=== PATIENT | female | born 1945 | race Caucasian/White ===

== ENCOUNTER 2019-11-03 11:35 | Outpatient (CLI) | payer MEDICARE, SELFPAY ==
--- NOTE | 2019-11-03 12:44 | ECG_ITS ---
Measurements Intervals [place] Rate: 64 P: 45 WV: 129 QRS: -72 QRSD: 86 T: 41 QT: 391 QTc: 404 Interpretive Statements SINUS RHYTHM LEFT AXIS DEVIATION INCOMPLETE RIGHT BUNDLE BRANCH BLOCK BASELINE ARTIFACT- I, II, III, AVR, AVL, AVF, V1-V6 BORDERLINE ECG Electronically Signed On 11-03-2019 13:00:44 CDT by Raoul Wilkins D.O.
[2019-11-03 13:02] LABS: Basophils Absolute Auto 0.1 K/mm3 (0.0-0.1); Basophils Percent Auto 0.6 % (0.2-1.2); Eosinophils Absolute Auto 0.1 K/mm3 (0-0.3); Eosinophils Percent Auto 0.9 % (0-4.4); Hematocrit 40.9 % (37.0-47.0); Hemoglobin 13.6 g/dL (12.0-15.0); Immature Granulocyte Absolute 0.02 K/mm3 (0.00-0.031); Immature Granulocyte Percent A 0.2 % (0-0.5); Lymphocytes Absolute Auto 1.75 K/mm3 (0.9-3.2); Lymphocytes Percent Auto 20.5 % (18.3-44.2); Mean Corpuscular HGB Conc 33.3 g/dl (32-36); Mean Corpuscular Hemoglobin 31.4 pg (26-34); Mean Corpuscular Volume 94.5 fl (80-100); Monocytes Absolute Auto 0.6 K/mm3 (0.1-0.6); Monocytes Percent Auto 6.9 % (2.6-8.5); Neutrophils Absolute Auto 6.1 K/mm3 (1.3-6.7); Neutrophils Percent Auto 70.9 % (45.5-73.1); Platelet Count Result 257 k/mm3 (150-375); Red Blood Count 4.33 M/mm3 (4.2-5.4); Red Cell Distribution Width 12.9 % (11.5-14.5); White Blood Count 8.5 K/mm3 (4.5-10.0)
[2019-11-03 13:15] LABS: Prothrombin Time 13.1 Seconds (11.1-14.7)
[2019-11-03 13:16] LABS: Partial Thromboplastin Time 25.9 SECONDS (22.3-36.8)
[2019-11-03 13:17] LABS: Alanine Aminotransferase 25 U/L (4-35); Albumin Level 4.2 g/dL (3.5-5.1); Alkaline Phosphatase 47 U/L (38-126); Anion Gap 3 mmol/L (8-16); Aspartate Amino Transferase 33 U/L (14-36); Bilirubin,Total 0.6 mg/dL (0.2-1.3); Blood Urea Nitrogen 22 mg/dL (7-17); Calcium 9.9 mg/dL (8.4-10.2); Carbon Dioxide 28 mmol/L (22-30); Chloride 106 mmol/L (98-107); Estimated Glomerular Filt Rate > 60; Glucose 93 mg/dL (65-105); Potassium 4.9 mmol/L (3.4-5.0); Sodium 137 mmol/L (137-145)
== END 2019-11-03 11:36 | disposition home or self-care (01) ==
PROVIDERS: Visit Provider Urology
DX: Z01.818 Encounter for other preprocedural examination (principal); N81.4 Uterovaginal prolapse, unspecified; E78.00 Pure hypercholesterolemia, unspecified
CPT/HCPCS: 36415; 80053; 85025; 85610; 85730; 86850; 86900; 86901; 87077; 87086; 87088; 87186; 93005

== ENCOUNTER 2019-11-10 00:19 | Outpatient (CLI) | payer MEDICARE, SELFPAY ==
[2019-11-10 18:02] LABS: SARS-CoV-2 RNA PCR Negative
== END 2019-11-10 00:20 | disposition home or self-care (01) ==
LOC: ANHCOVIDDT 00:19
PROVIDERS: Visit Provider Urology
DX: Z01.812 Encounter for preprocedural laboratory examination (principal); Z20.828 Contact with and (suspected) exposure to other viral communicable diseases
CPT/HCPCS: 87635; C9803; U0003

== ENCOUNTER 2019-11-13 01:27 | Day surgery (SDC) | payer MEDICARE, SELFPAY ==
[2019-11-03 12:11] VITALS: BP 128/64; PULSE 72; RESP 18; TEMP 37.2; O2SAT 99
[2019-11-03 12:41] VITALS: BMI 24.3
--- NOTE | 2019-11-08 08:00 | P.HP_ITS ---
H&P: HPI History of Present Illness Date/Time: 11/08/19 08:00 Chief complaint: Uterine Prolapse Narrative: Nisha Birmingham is a 74 year old female Who is admitted for repair of complete prolapse. She will undergo robotic supracervical hysterectomy bilateral salpingo-oophorectomy and robotic sacral colpopexy. Risks and benefits were reviewed including but not exclusive of , aspiration pneumonia, bleeding, transfusion. Perforation injury to bowel, bladder, ureters, or other internal organs with need for laparotomy reviewed. She had all questions answered. She asked to proceed Review of Systems 2 Review of Systems: All systems reviewed & are unremarkable except as noted in HPI and below PMFSH Social History Social History Smoking status: Never smoker Alcohol intake: current Drinks per week: 2 Substance use: never Spiritual care concerns: No Meds Home Medications and Allergies Home Medications Medication Instructions Recorded Confirmed Type alprazolam 0.25 mg PO BID PRN 11/03/19 11/03/19 History calcium carbonate [Calcium 600] 600 mg PO DAILY 11/03/19 11/03/19 History hqnf-yhfrc-fx9-yxq-elc-tooy-st 1 cap PO DAILY 11/03/19 11/03/19 History [Glucosamine Chondroitin PLUS] levothyroxine 25 mcg PO DAILY 11/03/19 11/03/19 History lisinopril 10 mg PO DAILY 11/03/19 11/03/19 History loratadine 10 mg PO DAILY 11/03/19 11/03/19 History tcntpqzd-rlvg-AE-calcium-mins 1 tablet PO DAILY 11/03/19 11/03/19 History [Women's One Daily] rosuvastatin 10 mg PO EVERY OTHER DAY 11/03/19 11/03/19 History Allergies Allergy/AdvReac Type Severity Reaction Status Date / Time ciprofloxacin [From Cipro] AdvReac Rash Verified 11/03/19 11:58 nitrofurantoin AdvReac Rash Verified 11/03/19 12:00 [From Macrobid] Exam Const: General: no acute distress Eyes: General: appearance normal, both eyes and all related structures Neck: Neck: supple and no JVD Thyroid: thyroid normal Resp: Effort & Inspection: normal respiratory effort Auscultation: clear to auscultation bilaterally Cardio: Rate: regular rate Rhythm: regular rhythm GI: Inspection: non-distended GI Palp: Yes Soft to palpation, No Tenderness to palpation present (GI) and No Guarding due to palpation present (GI) Auscultation: normal bowel sounds : General: Yes other ( 3rd degree prolapse is seen. Uterus and adnexa not enlarged) Skin: General skin exam: no rashes or lesions noted Extrem: General: normal to inspection and no edema Psych: Mental Status: mental status grossly normal Affect: normal affect Assessment and Plan Additional Plan impression: Pelvic prolapse Plan: Robotic supracervical hysterectomy and bilateral salpingo-oophorectomy
--- NOTE | 2019-11-12 17:23 | PM.IMHP ---
H&P: HPI History of Present Illness Date/Time: 11/12/19 17:23 Chief complaint: Uterine Prolapse Narrative: Nisha Birmingham is a 74 year old female with uterine prolapse, no SANDRA Review of Systems Review of Systems: All systems reviewed & are unremarkable except as noted in HPI and below PMFSH Social History Social History Smoking status: Never smoker Alcohol intake: current Drinks per week: 2 Substance use: never Spiritual care concerns: No Meds Home Medications and Allergies Home Medications Medication Instructions Recorded Confirmed Type alprazolam 0.25 mg PO BID PRN 11/03/19 11/03/19 History calcium carbonate [Calcium 600] 600 mg PO DAILY 11/03/19 11/03/19 History guin-wlwlk-vc3-ing-ofe-cdrk-st 1 cap PO DAILY 11/03/19 11/03/19 History [Glucosamine Chondroitin PLUS] levothyroxine 25 mcg PO DAILY 11/03/19 11/03/19 History lisinopril 10 mg PO DAILY 11/03/19 11/03/19 History loratadine 10 mg PO DAILY 11/03/19 11/03/19 History wusjxtue-kdcg-VK-calcium-mins 1 tablet PO DAILY 11/03/19 11/03/19 History [Women's One Daily] rosuvastatin 10 mg PO EVERY OTHER DAY 11/03/19 11/03/19 History Allergies Allergy/AdvReac Type Severity Reaction Status Date / Time ciprofloxacin [From Cipro] AdvReac Rash Verified 11/03/19 11:58 nitrofurantoin AdvReac Rash Verified 11/03/19 12:00 [From Macrobid] Exam Const: General: no acute distress HENMT: Mouth: Yes moist mucous membranes Eyes: EOM: EOMs intact bilaterally Neck: Neck: supple Resp: Effort & Inspection: normal respiratory effort GI: GI Palp: Yes Soft to palpation : Other: anterior +3, apex at 0 Skin: General skin exam: no rashes or lesions noted Neuro: Motor exam (neuro): Normal motor muscle tone present throughout Extrem: General: normal to inspection Psych: Affect: normal affect Assessment and Plan Assessment and plan (1) Uterine prolapse: Code(s): N81.4 - Uterovaginal prolapse, unspecified Status: Acute Assessment and Plan: robotic Sacral Colpopexy
[2019-11-13] VITALS (14 sets, daily range): BP systolic 102–142; BP diastolic 60–77; PULSE 52–87; RESP 12–20; TEMP 36.1–37.1; O2SAT 91–100; BMI 24.2
--- NOTE | 2019-11-13 06:03 | WPDHPUPDATE1 ---
History and Physical Update Update Date/Time: 11/13/19 06:03 History and Physical has been reviewed, including an updated exam of the patient. There are NO changes in the patient's condition. Risks, benefits, and alternatives have been discussed and questions answered. Patient agrees to proceed with procedure.
--- NOTE | 2019-11-13 07:19 | WPDHPUPDATE1 ---
History and Physical Update Update Date/Time: 11/13/19 07:19 History and Physical has been reviewed, including an updated exam of the patient. There are NO changes in the patient's condition. Risks, benefits, and alternatives have been discussed and questions answered. Patient agrees to proceed with procedure.
--- NOTE | 2019-11-13 09:48 | P.PNAN_ITS ---
Anes - Initial Pre Proc Eval Procedure: Operation Date: 11/13/19 11:30 Proposed Procedures p Robotic Assisted Sacrocolpopexy - Grzegorz Spicer MD s Robotic Assisted Supracervical Hysterectomy With Bilateral Salpingo- Oophorectomy - Titus Cardozo MD Date/Time: 11/13/19 09:48 Surgeon: Grzegorz Spicer MD Pre Op Diagnosis: Uterine Prolapse Patient Data Age: 74 Gender: F Height: 5 ft 3 in Weight: 62.3 kg Last Vital Signs Temp 37.2 C 11/03/19 12:11 Pulse 72 11/03/19 12:11 Resp 18 11/03/19 12:11 BP 128/64 11/03/19 12:11 Pulse Ox 99 11/03/19 12:11 Allergies Allergy/AdvReac Type Severity Reaction Status Date / Time ciprofloxacin [From Cipro] AdvReac Rash Verified 11/03/19 11:58 nitrofurantoin AdvReac Rash Verified 11/03/19 12:00 [From Macrobid] Home Medications Medication Instructions Recorded Confirmed Type alprazolam 0.25 mg PO BID PRN 11/03/19 11/03/19 History calcium carbonate [Calcium 600] 600 mg PO DAILY 11/03/19 11/03/19 History rlum-flxoj-fr2-pkz-zxs-adxx-st 1 cap PO DAILY 11/03/19 11/03/19 History [Glucosamine Chondroitin PLUS] levothyroxine 25 mcg PO DAILY 11/03/19 11/03/19 History lisinopril 10 mg PO DAILY 11/03/19 11/03/19 History loratadine 10 mg PO DAILY 11/03/19 11/03/19 History qvcnyywn-umlh-TD-calcium-mins 1 tablet PO DAILY 11/03/19 11/03/19 History [Women's One Daily] rosuvastatin 10 mg PO EVERY OTHER DAY 11/03/19 11/03/19 History Patient hx anesthesia problems: none Family hx anesthesia problems: none PMFSH Past Medical History Medical History (Updated 11/13/19 @ 09:48 by Titus Jimenez MD) Anxiety HTN (hypertension) Hyperlipidemia Social History Social History Smoking status: Never smoker Alcohol intake: current Drinks per week: 2 Substance use: never Living arrangements: with family Spiritual care concerns: No Anes - Eval Final PreProcedure Day of Procedure 11/13/19 09:48 Patient weight: normal Heart: regular rate and rhythm Lungs: clear to auscultation Airway: Mallampati scale class II Neurological: alert and oriented Last oral intake: >/= 8 hours ASA classification: II Emergent: no Anesthetic plan: proceed Anesthesia type and monitoring: general ETT and standard monitoring Informed Consent: The patient's anesthetic plan and its attendant risks and benefits were discussed with the patient/family/POA. Questions were solicited and answers provided to the satisfaction of the patient/family/POA.
[2019-11-13] MEDS: KETOROLAC 15 MG/ML VIAL (*BKC) IV PUSH ×2 (09:58→22:45)
[2019-11-13] MEDS: LACTATED RINGERS 1,000 ML 30 ML IV CONT ×2 (09:58→13:15)
[2019-11-13] MEDS: ACETAMINOPHEN 500 MG TABLET 1000 MG PO (09:59)
[2019-11-13] MEDS: ceFAZolin 2 GM/D5W 50 ML 2 GM/50 ML BAG IVPB (10:35)
[2019-11-13] MEDS: metroNIDAZOLE 500 MG/ISO 100ML 500 MG/100 ML BAG 100 MG IVPB (10:35)
[2019-11-13] MEDS: BUPIVACAINE/EPINEPHRINE 0.25% 50 ML VIAL INFILTRATE (11:19)
--- NOTE | 2019-11-13 11:31 | PM.PROC ---
Procedure Note - Detailed Date of procedure: 11/13/19 Pre-op diagnosis: Uterine Prolapse Surgeon: Titus Cardozo MD Postop diagnosis: Uterine prolapse there there were no complications Complications: None Findings: Normal-appearing uterus and ovaries left fallopian tube was normal. Right fallopian tube was partially absent Description of procedure: The patient was prepped and draped in the normal sterile fashion placed in the dorsal lithotomy position. Under excellent general endotracheal anesthesia weighted speculum was placed in posterior fornix of vagina. Anterior lip of the cervix was grasped with a single-tooth tenaculum in the Buchanan's cannula inserted to the cervix to be used later for uterine manipulation. The remainder instruments removed and a 16 [place] catheter placed in the bladder. Dr. hooper proceeded to dock the robot and after placement of the trocars. Please see his operative report for full details The left round ligament was grasped, burned, cut anteriorly the bladder flap was formed by caudally retracting the bladder away from the cervix and uterus to the opposite round ligament which was clamped burned and cut. The left infundibulopelvic structure was skeletonized. This was serially clamped, burned, cut and brought to the level of the previously cut round ligament. In like fashion the right infundibulopelvic structures were skeletonized. They were clamped, burned, cut to remove the right ovary and portion of tube. The left cardinal and broad ligaments were serially skeletonized. These were clamped, burned, cut and brought down the lateral edge of the cervix. In like fashion the right cardinal and broad ligaments were serially skeletonized. These were clamped, burned, cut and brought down to the level of the uterine vessels uterine vessels on the left were then serially clamped, burned, cut in individual fashion. The right uterine vessels were then serially skeletonized, clamped, burned, cut. Blanching was seen this supracervical incision was made in the uterus ovary and tube were replaced in the Endo-Catch. Blood loss was 25cc to this point Dr. Olivia proceeded with his portion from
--- NOTE | 2019-11-13 13:07 | P.OP_ITS ---
Procedure Note - Detailed Date of procedure: 11/13/19 Pre-op diagnosis: Uterine Prolapse Uterine prolapse Post-op diagnosis: same Procedure performed: Robotic assisted laparoscopic sacral colpopexy Cystoscopy Description of procedure: She understood the risks of bleeding, infection, damage to surrounding organs, bowel injury, bowel obstruction, recurrence of prolapse, persistent or recurrent stress incontinence, mesh related complications including exposure and extrusion, diskitis, postoperative voiding dysfunction including incontinence and retention, hip and leg pain, dyspareunia, and she agrees to proceed. She was correctly identified and informed consent was obtained. She was brought to the operating room. She was given general anesthesia. She was placed in the dorsal lithotomy position. All pressure points were padded. She was given appropriate perioperative antibiotics. Time-out performed. I anesthetized the skin 3 fingerbreadths cephalad to the umbilicus. I incised the skin. I dissected down to locate the fascia. I grasped the fascia with Lulú clamps. I entered the fascia sharply. I placed Vicryl sutures for later fascial closure. I placed a midline trocar. Under direct vision 2 additional trocars were placed on the right and left upper quadrant. She was placed in steep Trendelenburg and the robot was docked. Her manager [employer] performed the portion of the procedure and left the specimen and a sac which was extracted. I then sat at the console. With the Sizer in the vagina I created a plane on the anterior and posterior vaginal wall. This was done for several cm taking great care not to injure the vagina, bladder, or rectum. I introduced the mesh into the abdomen. I sewed the anterior leaflet of mesh on the anterior vaginal wall and posterior leaf of the mesh on the posterior vaginal wall with several [place] sutures taking great care not to go through and through. I then reflected the colon laterally. I opened up the posterior peritoneum over the sacral promontory. I carried this into the cul-de-sac. I kept the ureters lateral. I freed up the edges. I located the anterior longitudinal ligament of the sacrum. I tensioned the mesh appropriately. I did a vaginal exam to ensure prolapse reduction without undue tension. I then sewed the proximal leaflet of mesh onto the ligament with 3 sutures of 2 0 [place]. Next the mass was meticulously retroperitonealized with a running 2 0 Monocryl suture. I allowed the colon to go back into its normal anatomic location. There is no signs of any impingement or stricturing. The abdomen was exited. Fascia was closed. Skin was closed with Monocryl and glue. I then performed cystoscopy. The bladder is examined. There was no tumors, stones, foreign bodies, surgical artifact. Both ureters were seen to excrete clear yellow urine. There is no surgical artifact in the urethra. Catheter was then replaced. She was awakened and transferred to the PACU in stable condition. Anesthesia: GLMA Surgeon: Grzegorz Spicer MD Drains: Yes (Alcantar catheter) Packing: Yes Complications: No immediate complications Condition: stable Disposition: PACU
[2019-11-13] MEDS: fentaNYL CITRATE INJ (*CRX) 100 MCG/2 ML VIAL 25 MCG IV PUSH ×4 (13:29→14:19)
[2019-11-13] MEDS: ONDANSETRON INJ 4 MG/2 ML VIAL IV PUSH (14:15)
[2019-11-13] MEDS: KETOROLAC 30 MG/ML VIAL (*BKC) (15:11)
[2019-11-13] MEDS: KCL 20 MEQ/D5/0.45% SOD CHL 1,000 ML 100 ML IV CONT (15:11)
--- NOTE | 2019-11-13 15:43 | PC.NURSE ---
This patient, Nisha Birmingham, was received from PACU on 11/13/19 at 1438. Patient/family oriented to unit policies and routines
[2019-11-13] MEDS: diphenhydrAMINE HCl INJ 50 MG/ML VIAL 25 MG IV PUSH (16:16)
[2019-11-13] MEDS: ACETAMINOPHEN 325 MG TABLET 650 MG PO (19:39)
[2019-11-14 00:09] VITALS: BP 107/57; PULSE 71; RESP 16; TEMP 37.1; O2SAT 95
[2019-11-14] MEDS: KCL 20 MEQ/D5/0.45% SOD CHL 1,000 ML 100 ML IV CONT (01:56)
[2019-11-14] MEDS: HYDROcodone/acetaminophen (*CRX) 5-325 MG TABLET 1 TAB PO ×2 (04:33→09:03)
[2019-11-14 04:46] VITALS: BP 110/61; PULSE 69; RESP 16; TEMP 36.7; O2SAT 95
--- NOTE | 2019-11-14 06:28 | PM.OBPNVD ---
OB - PN: Subj Subjective Date/time seen: 11/14/19 06:28 Patient comments: no complaints and pain well controlled OB - PN A/P Plan day: 1 Plan: routine care, discharge home and follow up 6 weeks (2 weeks) Time Spent With Patient Time: Total time spent is greater than 50% in coordination of care (as documented) at patient's floor/unit and/or counseling patient: Time with patient: less than 15 minutes Review of Systems Review of Systems: All systems reviewed & are unremarkable except as noted in HPI and below Exam Const: General: no acute distress Eyes: General: appearance normal, both eyes and all related structures Neck: Neck: supple and no JVD Thyroid: thyroid normal Resp: Effort & Inspection: normal respiratory effort Auscultation: clear to auscultation bilaterally Cardio: Rate: regular rate Rhythm: regular rhythm GI: Inspection: non-distended GI Palp: Yes Soft to palpation, No Tenderness to palpation present (GI) and No Guarding due to palpation present (GI) Auscultation: normal bowel sounds Skin: General skin exam: no rashes or lesions noted Extrem: General: normal to inspection and no edema Psych: Mental Status: mental status grossly normal Affect: normal affect
--- NOTE | 2019-11-14 06:29 | PM.DS ---
DS: Admitting Diagnosis Admitting Diagnosis Admitting Diagnosis: Uterine Prolapse DS: Summary Time Spent with Patient Time attestation: Total time spent providing and/or coordinating discharge services: The patient experienced an unremarkable post operative course. She remained afebrile. She was up. She was voiding without difficulty. She was able to eat a full meal. She was discharged without reservation Exam Const: General: no acute distress Eyes: General: appearance normal, both eyes and all related structures Neck: Neck: supple and no JVD Thyroid: thyroid normal Resp: Effort & Inspection: normal respiratory effort Auscultation: clear to auscultation bilaterally Cardio: Rate: regular rate Rhythm: regular rhythm GI: Inspection: non-distended GI Palp: Yes Soft to palpation, No Tenderness to palpation present (GI) and No Guarding due to palpation present (GI) Auscultation: normal bowel sounds : General: Yes bladder normal to palpation External Female Exam: normal external appearance Speculum Exam - Vagina: normal vaginal discharge and No vaginal bleeding Speculum Exam - Cervix: nontender Bimanual exam- vagina & uterus: bladder normal to palpation and No Cervical tenderness present OB/external & speculum: No vaginal bleeding Skin: General skin exam: no rashes or lesions noted Extrem: General: normal to inspection and no edema Psych: Mental Status: mental status grossly normal Affect: normal affect DS: Data Data Completed and Pending Pending studies at discharge: Pending at discharge 11/13/19 11:29 Surgical [PTH] Routine Discharge Plan Discharge Patient Disposition: Home, Self-Care Discharge Instructions: No lifting >20lb, exercise for 6 weeks No tub bath or pool for 2 weeks No intercourse for 6 weeks Stand Alone Forms: General Discharge Instructions Follow-up/Referrals: Grzegorz Spicer MD [Physician] - (In 6 weeks) Discharge Medications: New hydrocodone-acetaminophen [[place]] 5-325 mg tablet 1 tablet PO Q4H PRN (Reason: pain) Qty: 20 RF: 0 docusate sodium [Colace] 100 mg capsule 100 mg PO BID Qty: 60 RF: 0 Continued calcium carbonate [Calcium 600] 600 mg calcium (1,500 mg) Tablet 600 mg PO DAILY RF: 0 alprazolam 0.25 mg Tablet 0.25 mg PO BID PRN (Reason: Anxiety) RF: 0 lisinopril 10 mg Tablet 10 mg PO DAILY RF: 0 rosuvastatin 10 mg Tablet 10 mg PO EVERY OTHER DAY RF: 0 levothyroxine 25 mcg Capsule 25 mcg PO DAILY RF: 0 loratadine 10 mg Capsule 10 mg PO DAILY RF: 0 Women's One Daily 18 mg iron-400 mcg-500 mg Ca Tablet 1 tablet PO DAILY RF: 0 Glucosamine Chondroitin PLUS [phone] mg Capsule 1 cap PO DAILY RF: 0
[2019-11-14] MEDS: LEVOTHYROXINE SODIUM 25 MCG TABLET PO (07:48)
[2019-11-14] MEDS: ENOXAPARIN 30 MG/0.3 ML SYRINGE SUB-Q (07:48)
[2019-11-14 08:30] VITALS: BP 116/57; PULSE 67; RESP 18; TEMP 36.9; O2SAT 96
[2019-11-14] MEDS: DOCUSATE SODIUM 100 MG CAPSULE PO (09:02)
[2019-11-14] MEDS: LORATADINE 10 MG TABLET PO (09:03)
[2019-11-14] MEDS: lisinopriL 10 MG TABLET PO (09:03)
[2019-11-14] MEDS: SIMETHICONE 80 MG TAB.CHEW PO (10:58)
== END 2019-11-14 12:40 | disposition home or self-care (01) ==
LOC: ANHSURGERY 10:06 → ANHOB2 14:26
PROVIDERS: Obstetrics & Gynecology; Visit Provider Urology
PROC: (CPT 57425; principal; 2019-11-13 11:30)
PROC: (CPT 58542; 2019-11-13 11:30)
DX: N81.4 Uterovaginal prolapse, unspecified (principal); N80.0 Endometriosis of uterus; I10 Essential (primary) hypertension; E78.5 Hyperlipidemia, unspecified; F41.9 Anxiety disorder, unspecified
CPT/HCPCS: 57425; 58542; S2900 ×2; 88305; 88307; 99199; A9270; C1781; J0330; J0690; J1100; J1200; J1650; J1885; J2405; J2704; J3010; J3480; J7030; J7120